=== PATIENT | male | born 1945 | race Two or more races ===

== ENCOUNTER 2017-09-16 23:46 | Emergency (ER) | payer SELFPAY ==
[~2017-09-16] VITALS: Ht 167.6 cm; Wt 65.8 kg
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
[2017-09-17 01:05] VITALS: BP 115/62
[2017-09-17 03:15] VITALS: BP 118/66
[2017-09-17 05:20] VITALS: BP 112/61
[2017-09-17 05:21] VITALS: BP 112/61
--- NOTE | 2017-09-17 09:37 | Diagnostic Imaging Report ---
Indication: Altered mental status Technique: spiral acquisitions obtained through the brain. Angled axial and coronal 5 x 5 mm slices were reconstructed. No IV contrast utilized. Radiation dose was minimized using automated exposure control Total dose length product 1509 mGycm. CTDIvol(s) 70 mGy Comparison: none FINDINGS: No acute hemorrhage or edema. No mass effect or midline shift. There is age-related enlargement of the ventricles and extra axial CSF spaces. There is periventricular deep white matter ischemic change. Normal henry-white differentiation. Visualized orbits are unremarkable. There is bilateral ethmoid sinus disease. Intact calvarium. IMPRESSION: Chronic and age-related changes. Negative for acute intracranial bleed or mass effect Sinus disease This agrees with the preliminary interpretation provided overnight by [facility]. The CT scanner at [facility] is accredited by the [employer] and the scans are performed using protocols designed to limit radiation exposure to as low as reasonably achievable to attain images of sufficient resolution adequate for diagnostic evaluation
--- NOTE | 2017-09-17 09:37 | Diagnostic Imaging Report ---
Indication: Altered mental status Technique: spiral acquisitions obtained through the brain. Angled axial and coronal 5 x 5 mm slices were reconstructed. No IV contrast utilized. Radiation dose was minimized using automated exposure control Total dose length product 1509 mGycm. CTDIvol(s) 70 mGy Comparison: none FINDINGS: No acute hemorrhage or edema. No mass effect or midline shift. There is age-related enlargement of the ventricles and extra axial CSF spaces. There is periventricular deep white matter ischemic change. Normal henry-white differentiation. Visualized orbits are unremarkable. There is bilateral ethmoid sinus disease. Intact calvarium. IMPRESSION: Chronic and age-related changes. Negative for acute intracranial bleed or mass effect Sinus disease This agrees with the preliminary interpretation provided overnight by [facility]. The CT scanner at [facility] is accredited by the [employer] and the scans are performed using protocols designed to limit radiation exposure to as low as reasonably achievable to attain images of sufficient resolution adequate for diagnostic evaluation
== END 2017-09-17 05:23 | disposition home or self-care (01) ==
LOC: EDBD 23:46 → EMR 09-17 00:06
DX: M54.2 Cervicalgia (principal); R41.0 Disorientation, unspecified; R41.82 Altered mental status, unspecified
CPT/HCPCS: 70450; 99283